=== PATIENT | male | born 2005 | race Caucasian/White ===

== ENCOUNTER → 2024-09-20 13:48 | Outpatient (BNVA) | payer MEDICAID, SELFPAY | PROVIDERS: Visit Provider Nurse Practitioner | DX: R06.00 Dyspnea, unspecified (principal); R63.4 Abnormal weight loss | CPT/HCPCS: 71046; 80053; 84443; 85025 ==

== ENCOUNTER → 2024-11-30 09:52 | Outpatient (BNVA) | payer MEDICAID, SELFPAY | PROVIDERS: Visit Provider Nurse Practitioner | DX: R06.00 Dyspnea, unspecified (principal); Z11.52 Encounter for screening for COVID-19 | CPT/HCPCS: 87071; 87426; 87880 ==